=== PATIENT | male | born 1990 | race Caucasian/White ===

== ENCOUNTER 2020-03-26 19:14 | Inpatient (IN) | payer MEDICAID, OTHER, SELFPAY ==
[~2020-03-26] VITALS: Ht 175.3 cm; Wt 179.1 kg
[2020-03-26 21:03] LABS: HEMOGLOBIN 14.1 g/dl (13.5-17.5); MEAN CORPUSCULAR HEMOGLOBIN 27.3 pg (27.0-33.0); MEAN CORPUSCULAR HGB CONC 31.3 g/dl (32.0-36.5); MEAN CORPUSCULAR VOLUME 87.2 fl (80.0-96.0); PLATELET COUNT, AUTOMATED 325 10^3/uL (150-450); RED BLOOD COUNT 5.16 10^6/uL (4.30-6.10); WHITE BLOOD COUNT 12.9 10^3/uL (4.0-10.0)
[2020-03-26 21:33] LABS: AMPHETAMINES LEVEL URINE NEGATIVE (NEGATIVE); BARBITURATES URINE NEGATIVE (NEGATIVE); BENZODIAZEPINES URINE NEGATIVE (NEGATIVE); CANNABINOIDS URINE NEGATIVE (NEGATIVE); COCAINE METABOLITE URINE NEGATIVE (NEGATIVE); METHADONE URINE NEGATIVE (NEGATIVE); OPIATES URINE NEGATIVE (NEGATIVE); PHENCYCLIDINE URINE NEGATIVE (NEGATIVE)
[2020-03-26 21:49] LABS: ACETAMINOPHEN LEVEL < 2.0 UG/ML (10.0-30.0); ALBUMIN 4.7 GM/DL (3.2-5.2); ALT/SGPT 86 U/L (12-78); BILIRUBIN,DIRECT 0.1 MG/DL (0.0-0.2); BILIRUBIN,TOTAL 0.4 MG/DL (0.2-1.0); BLOOD UREA NITROGEN 15 MG/DL (7-18); CARBON DIOXIDE LEVEL 23 MEQ/L (21-32); CHLORIDE LEVEL 107 MEQ/L (98-107); CREATININE FOR GFR 1.22 MG/DL (0.70-1.30); ETHYL ALCOHOL (ETHANOL) < 0.003 % (0.000-0.010); GLOMERULAR FILTRATION RATE > 60.0 (>60); GLUCOSE, FASTING 114 MG/DL (70-100); POTASSIUM SERUM 4.5 MEQ/L (3.5-5.1); SALICYLATE LEVEL < 1.7 MG/DL (5.0-30.0); SODIUM LEVEL 140 MEQ/L (136-145); TOTAL PROTEIN 8.2 GM/DL (6.4-8.2)
[2020-03-26] MEDS ORDERED: LISI20TA33 PO (22:55)
[2020-03-26] MEDS ORDERED: METF-838 PO (22:55)
[2020-03-26] MEDS ORDERED: RIBO400T PO (22:55)
[2020-03-26] MEDS ORDERED: ALEV220T22 PO (22:55)
[2020-03-26] MEDS ORDERED: BUPR150T4 PO (22:55)
[2020-03-26] MEDS ORDERED: RA M10TA PO (22:55)
[2020-03-26] MEDS ORDERED: SYNT175T2 PO (22:55)
[2020-03-26] MEDS ORDERED: LORazepam 2 MG TAB PO ONE (23:30)
[2020-03-27] MEDS ORDERED: LORazepam 2 MG TAB PO ONE ×2 (04:45→21:00)
[2020-03-27] MEDS: LEVOTHYROXINE 100MCG TABLET (0.1MG) PO SCH (09:04)
[2020-03-27] MEDS: NAPROXEN 250 MG TAB PO SCH (09:04)
[2020-03-27] MEDS: LEVOTHYROXINE 75MCG TABLET (0.075MG) PO SCH (09:04)
[2020-03-27] MEDS: buPROPion **XL** TABLET 150MG (WELLBUTRIN XL) PO SCH (09:06)
[2020-03-27] MEDS ORDERED: LORazepam 1 MG TAB PO ONE (11:15)
[2020-03-27 12:02] LABS: RSV AMPLIFICATION NEGATIVE (NEGATIVE)
--- NOTE | 2020-03-27 20:34 | ECGEPIP ---
[facility] - ED Test Date: 2020-03-26 Pat Name: SHAVONNE TREVINO Department: Room: - Gender: Male Well Blower: landon : 1990 Requested By: JA Begum Order Number: [id number] Reading MD: Orlando Castanon Measurements Intervals [place] Rate: 101 P: 56 LA: 132 QRS: 58 QRSD: 94 T: 39 QT: 322 QTc: 418 Interpretive Statements SINUS TACHYCARDIA NO PRIORS FOR COMPARISON Electronically Signed on 03-27-2020 20:34:32 EST by Orlando Castanon
[2020-03-27] MEDS: metFORMIN XR 500MG TAB *GLUCOPHAGE XR PO SCH (21:00)
[2020-03-28] MEDS: LEVOTHYROXINE 100MCG TABLET (0.1MG) PO SCH (06:00)
[2020-03-28] MEDS: LEVOTHYROXINE 75MCG TABLET (0.075MG) PO SCH (06:00)
[2020-03-28] MEDS ORDERED: buPROPion **XL** TABLET 150MG (WELLBUTRIN XL) PO SCH (09:00)
[2020-03-28] MEDS: NAPROXEN 250 MG TAB PO SCH (09:24)
[2020-03-28] MEDS: buPROPion **XL** TABLET 150MG (WELLBUTRIN XL) PO SCH (09:25)
[2020-03-28] MEDS ORDERED: ACETAMINOPHEN TAB 650MG DOSE (2X325MG) PO PRN (12:30)
[2020-03-28] MEDS ORDERED: MAALOX 30 ML SUSP *UDC PO PRN (12:30)
[2020-03-28] MEDS ORDERED: MOM 30ML SUSPENSION UDC PO PRN (12:30)
[2020-03-28] MEDS ORDERED: OLANZapine ORAL DISINTEGRATING TAB 5MG PO PRN (12:30)
--- OUTSIDE RECORDS SUMMARY | 2020-03-28 12:50 | CCD ---
Author Author [facility] Organization [facility] Address Unknown Phone Unavailable Care Team Providers Care [employer] Name Role Phone Luis Rossi DO Unavailable Unavailable Enid R Yash DO Unavailable Unavailable Leuwagnerer R Yash DO Unavailable Unavailable Leuawgnerer R Yash DO Unavailable Unavailable Leuwagnerer, R Yash DO Unavailable Unavailable Leuwagnerer, R Yash DO Unavailable Unavailable Leuwagnerer, R Yash DO Unavailable Unavailable Leuwagnerer R Yash DO Unavailable Unavailable Leuwagnerer, R Yash DO Unavailable Unavailable Leuwagnerer, R Yash DO Unavailable Unavailable Leuenberger, R Yash DO Unavailable Unavailable Leuenberger, R Yash DO Unavailable Unavailable Leuenberger, R Yash DO Unavailable Unavailable Leuenberger, R Yash DO Unavailable Unavailable Leuenberger, R Yash DO Unavailable Unavailable Leuenberger, R Yash DO Unavailable Unavailable Leuenberger, R Yash DO Unavailable Unavailable Leuenberger, R Yash DO Unavailable Unavailable Leuenberger, R Yash DO Unavailable Unavailable Leuenberger, R Yash DO Unavailable Unavailable Leuenberger, R Yash DO Unavailable Unavailable Leuenberger, R Yash DO Unavailable Unavailable Leuenberger, R Yash DO Unavailable Unavailable Leuenberger, R Yash DO Unavailable Unavailable Leuenberger, R Yash DO Unavailable Unavailable Leuenberger, R Yash DO Unavailable Unavailable Leuenberger, R Yash DO Unavailable Unavailable Leuenberger, R Yash DO Unavailable Unavailable Leuenberger, R Yash DO Unavailable Unavailable Leuenberger, R Yash DO Unavailable Unavailable Leuenberger, R Yash DO Unavailable Unavailable Leuenberger, R Yash DO Unavailable Unavailable Leuenberger, R Yash DO Unavailable Unavailable Leuenberger, R Yash DO Unavailable Unavailable Leuenberger, R Yash DO Unavailable Unavailable Leuenberger, R Yash DO Unavailable Unavailable Leuenberger, R Yash DO Unavailable Unavailable Leuenberger, R Yash DO Unavailable Unavailable Leuenberger, R Yash DO Unavailable Unavailable Leuenberger, R Yash DO Unavailable Unavailable Leuenberger, R Yash DO Unavailable Unavailable Leuenberger, R Yash DO Unavailable Unavailable Leuenberger, R Yash DO Unavailable Unavailable Leuenberger, R Yash DO Unavailable Unavailable Leuenberger, R Yash DO Unavailable Unavailable Leuenberger, R Yash DO Unavailable Unavailable Leuenberger, R Yash DO Unavailable Unavailable Leuenberger, R Yash DO Unavailable Unavailable Leuenberger, R Yash DO Unavailable Unavailable Leuenberger, R Yash DO Unavailable Unavailable Leuenberger, R Yash DO Unavailable Unavailable Leuenberger, R Yash DO Unavailable Unavailable Leuenberger, R Yash DO Unavailable Unavailable Leuenberger, R Yash DO Unavailable Unavailable Leuenberger, R Yash DO Unavailable Unavailable Leuenberger, R Yash DO Unavailable Unavailable Leuenberger, R Yash DO Unavailable Unavailable Leuenberger, R Yash DO Unavailable Unavailable Leuenberger, R Yash DO Unavailable Unavailable Leuenberger, R Yash DO Unavailable Unavailable Leuenberger, R Yash DO Unavailable Unavailable Leuenberger, R Yash DO Unavailable Unavailable Leuenberger, R Yash DO Unavailable Unavailable Leuenberger, R Yash DO Unavailable Unavailable Leuenberger, R Yash DO Unavailable Unavailable Leuenberger, R Yash DO Unavailable Unavailable Luis Rossi DO Unavailable Unavailable Shavonne Tellez MD Unavailable Unavailable Palmowski, T Davina PA Unavailable Unavailable Palmowski, T Davina PA Unavailable Unavailable Palmowski, T Davina PA Unavailable Unavailable Palmowski, T Davina PA Unavailable Unavailable Palmowski, T Davina PA Unavailable Unavailable Palmowski, T Davina PA Unavailable Unavailable Palmowski, T Davina PA Unavailable Unavailable Palmowski, T Davina PA Unavailable Unavailable Palmowski, T Davina PA Unavailable Unavailable Palmowski, T Davina PA Unavailable Unavailable Palmowski, T Davina PA Unavailable Unavailable Palmowski, T Davina PA Unavailable Unavailable Palmowski, T Davina PA Unavailable Unavailable Palmowski, T Davina PA Unavailable Unavailable Palmowski, T Davina PA Unavailable Unavailable Palmowski, T Davina PA Unavailable Unavailable Palmowski, T Davina PA Unavailable Unavailable Palmowski, T Davina PA Unavailable Unavailable Palmowski, T Davina PA Unavailable Unavailable Palmowski, T Davina PA Unavailable Unavailable Palmowski, T Davina PA Unavailable Unavailable Palmowski, T Davina PA Unavailable Unavailable Palmowski, T Davina PA Unavailable Unavailable Palmowski, T Davina PA Unavailable Unavailable [facility], [facility] Unavailable Unavailable SYSTEM IN, NOT IN PROVIDER Unavailable Unavailable Re-disclosure Warning The records that you are about to access may contain information from federally-assisted alcohol or drug abuse programs. If such information is present, then the following federally mandated warning applies: This information has been disclosed to you from records protected by federal confidentiality rules (42 CFR part 2). The federal rules prohibit you from making any further disclosure of this information unless further disclosure is expressly permitted by the written consent of the person to whom it pertains or as otherwise permitted by 42 CFR part 2. A general authorization for the release of medical or other information is NOT sufficient for this purpose. The Federal rules restrict any use of the information to criminally investigate or prosecute any alcohol or drug abuse patient.The records that you are about to access may contain highly sensitive health information, the redisclosure of which is protected by Article 27-F of the [facility] Public Health law. If you continue you may have access to information: Regarding HIV / AIDS; Provided by facilities licensed or operated by the [facility] Office of Mental Health; or Provided by the [facility] Office for People With Developmental Disabilities. If such information is present, then the following [facility] mandated warning applies: This information has been disclosed to you from confidential records which are protected by state law. State law prohibits you from making any further disclosure of this information without the specific written consent of the person to whom it pertains, or as otherwise permitted by law. Any unauthorized further disclosure in violation of state law may result in a fine or usp sentence or both. A general authorization for the release of medical or other information is NOT sufficient authorization for further disc losure. Encounters Encounter Providers Location Date Indications Data Source(s ) Outpatient Referrer: PROVIDER SYSTEM IN 03/27/2020 1 0:40:00 AM EST SI, depression [facility] SI, depression Outpatient Attender: Yash Connell: Yash goff DO 10/17/2019 12:52:00 PM EDT - 10/17/2019 01:51:00 PM EDT [facility] Outpatient Attender: Yash Rossi DO 10/16/2019 06:24:00 PM EDT I10,E78.,E11.9,E03.9,R79.89,E78.00,A09 [facility] I10,E78.,E11.9,E03.9,R79.89,E78.00,A09 Outpatient Attender: Davina Barretter: Yash Quiroga DO 08/24/2019 08:47:00 AM [facility]: Yash Connell: Yash goff DO 05/16/2019 03:22:00 PM EDT - 05/16/2019 04:01:00 PM EDT [facility] Outpatient Attender: Yash Rossi DO 05/15/2019 04:01: 00 PM EDT E11.9,I10 [facility] E11.9,I10 Outpatient Attender: JOE ALFREDAL 05/09/2019 09:01:08 PM ES T [facility] Emergency Attender: Shavonne Tellez MD 03:30:00 PM EST - 03/06/2019 04:21:00 PM EST [facility] F[facility] Patient discharged. Outpatient Attender: Yash Theodoreer: Yash salmeronerger 02/24/2019 04:10:00 PM EST - 02/24/2019 04:31:00 PM EST [facility] Immunizations Vaccine Date Status Description Data Source(s) Tdap 03/06/2019 12:00:00 AM EST completed tetan us, diphtheria, acell pertussis 7yrs &up [facility] Tdap 03/06/2019 12:00:00 AM EST completed tetan us, diphtheria, acell pertussis 7yrs &up [facility] Tdap 03/06/2019 12:00:00 AM EST completed tetan us, diphtheria, acell pertussis 7yrs &up [facility] Tdap 03/06/2019 12:00:00 AM EST completed tetan us, diphtheria, acell pertussis 7yrs &up [facility] Medications Medication Brand Name Start Date Product Form Dose Route Admi nistrative Instructions Pharmacy Instructions Status Indications Reaction Description Data Source(s) 175 mcg 11/03/2019 12:00:00 AM EDT tablet 90 TAKE ONE TABLET BY MOUTH EVERY DAY TAKE ONE TABLET BY MOUTH EVERY DAY SOLD: 11/03/2019 [facility] 175 mcg 11/03/2019 12:00:00 AM EDT tablet 90 TAKE ONE TABLET BY MOUTH EVERY DAY TAKE ONE TABLET BY MOUTH EVERY DAY SOLD: 01/28/2020 [facility] 500 mg 10/18/2019 12:00:00 AM EDT tablet extended release 24 hr 90 TAKE ONE TABLET BY MOUTH EVERY EVENING TAKE ONE TABLET BY MOUTH EVERY EVENING SOLD: 01/02/2020 [facility] 24 HR Bupropion Hydrochloride 150 MG Extended Release Oral T ablet BUPROPION HCL 10/18/2019 12:00:00 AM EDT tablet extended release 24 hr 90 TAKE ONE TABLET BY MOUTH EVERY MORNING TAKE ONE TABLET BY MOUTH EVERY MORNING SOLD: 01/20/2020 [facility] 24 HR Bupropion Hydrochloride 150 MG Extended Release Oral T ablet BUPROPION HCL 10/18/2019 12:00:00 AM EDT tablet extended release 24 hr 90 TAKE ONE TABLET BY MOUTH EVERY MORNING TAKE ONE TABLET BY MOUTH EVERY MORNING SOLD: 10/19/2019 [facility] 500 mg 10/18/2019 12:00:00 AM EDT tablet extended release 24 hr 90 TAKE ONE TABLET BY MOUTH EVERY EVENING TAKE ONE TABLET BY MOUTH EVERY EVENING SOLD: 10/19/2019 [facility] 24 HR Metformin hydrochloride 500 MG Extended Release Oral T ablet Metformin 10/17/2019 01:22:07 PM EDT 500 MG [facility] 24 HR Bupropion Hydrochloride 150 MG Extended Release Oral Tablet Bupropion Hcl Bupropion Hcl 10/17/2019 01:21:39 PM EDT 150 MG [facility] 20 mg 09/12/2019 12:00:00 AM EDT tablet 90 TAKE ONE TABLET BY MOUTH EVERY DAY TAKE ONE TABLET BY MOUTH EVERY DAY SOLD: 12/20/2019 [facility] 20 mg 09/12/2019 12:00:00 AM EDT tablet 90 TAKE ONE TABLET BY MOUTH EVERY DAY TAKE ONE TABLET BY MOUTH EVERY DAY SOLD: 09/13/2019 [facility] 20 mg 09/12/2019 12:00:00 AM EDT tablet 90 TAKE ONE TABLET BY MOUTH EVERY DAY TAKE ONE TABLET BY MOUTH EVERY DAY SOLD: 03/20/2020 [facility] Lisinopril 20 MG Oral Tablet Lisinopril 09/11/2019 04:42:25 PM EDT 20 MG active [facility] Levothyroxine Sodium 0.175 MG Oral Tablet Levothyroxine 09/01/2019 04:07:00 PM EDT 175 MCG [facility] 175 mcg 09/01/2019 12:00:00 AM EDT tablet 60 TAKE ONE TABLET BY MOUTH EVERY DAY. NEED TO GET LABS DONE PLEASE. TAKE ONE TABLET BY MOUTH EVERY DAY. NEED TO GET LABS DONE PLEASE. SOLD: 09/04/2019 [facility] 175 mcg 07/04/2019 12:00:00 AM EDT tablet 60 TAKE ONE TABLET BY MOUTH EVERY DAY TAKE ONE TABLET BY MOUTH EVERY DAY SOLD: 07/05/2019 [facility] 20 mg 07/04/2019 12:00:00 AM EDT tablet 60 TAKE ONE TABLET BY MOUTH EVERY DAY TAKE ONE TABLET BY MOUTH EVERY DAY SOLD: 07/05/2019 [facility] Levothyroxine Sodium 0.175 MG Oral Tablet Levothyroxine 07/03/2019 01:08:08 PM EDT 175 MCG [facility] Levothyroxine Sodium 0.175 MG Oral Tablet Levothyroxine 07/03/2019 01:08:08 PM EDT 175 MCG completed [facility] Lisinopril 20 MG Oral Tablet Lisinopril 07/03/2019 11:50:47 AM EDT 20 MG completed [facility] Lisinopril 20 MG Oral Tablet Lisinopril 07/03/2019 11:50:47 AM EDT 20 MG active [facility] Levothyroxine Sodium 0.175 MG Oral Tablet Levothyroxine 06/30/2019 02:17:20 PM EDT 175 MCG completed [facility] Levothyroxine Sodium 0.175 MG Oral Tablet Levothyroxine 06/30/2019 02:17:20 PM EDT 175 MCG completed [facility] Pen Needle, Diabetic 05/16/2019 03:57:29 PM EDT 0 active [facility] Pen Needle, Diabetic 05/16/2019 03:57:29 PM EDT 0 completed [facility] Pen Needle, Diabetic (Bd Ultra-Fine Micro Pen Needle) 32 gau ge x 1/4" needle 05/16/2019 03:57:29 PM EDT 0 completed [facility] 3 ML liraglutide 6 MG/ML Pen Injector [S axenda] Liraglutide (Weight Loss) (Saxenda) 3 mg/0.5 mL (18 mg/3 mL) pen injector Liraglutide (Weight Loss) (Saxenda) 3 mg/0.5 mL (18 mg/3 mL) pen injector 05/16/2019 03:55:33 PM EDT 0 completed [facility] 3 ML liraglutide 6 MG/ML Pen Injector [Saxenda] Liragl utide (Weight Loss) Liraglutide (Weight Loss) 05/16/2019 03:55:33 PM EDT 0 completed [facility] 3 ML liraglutide 6 MG/ML Pen Injector [Saxenda] Liragl utide (Weight Loss) Liraglutide (Weight Loss) 05/16/2019 03:55:33 PM EDT 0 active [facility] Phentermine Hydrochloride 30 MG Oral Capsule Phentermine 05/16/2019 03:54:46 PM EDT 30 MG active [facility] Phentermine Hydrochloride 30 MG Oral Capsule Phentermine 05/16/2019 03:54:46 PM EDT 30 MG completed [facility] Phentermine Hydrochloride 30 MG Oral Capsule Phentermine 05/16/2019 03:54:46 PM EDT 30 MG completed [facility] 30 mg 05/16/2019 12:00:00 AM EDT capsule 30 TAKE ONE CAPSULE BY MOUTH EVERY DAY MAXIMUM DAILY DOSE = 1 CAPSULE TAKE ONE CAPSULE BY MOUTH EVERY DAY MAXI MUM DAILY DOSE = 1 CAPSULE SOLD: 07/22/2019 [facility] 30 mg 05/16/2019 12:00:00 AM EDT capsule 30 TAKE ONE CAPSULE BY MOUTH EVERY DAY MAXIMUM DAILY DOSE = 1 CAPSULE TAKE ONE CAPSULE BY MOUTH EVERY DAY MAXI MUM DAILY DOSE = 1 CAPSULE SOLD: 06/17/2019 [facility] 30 mg 05/16/2019 12:00:00 AM EDT capsule 30 TAKE ONE CAPSULE BY MOUTH EVERY DAY MAXIMUM DAILY DOSE = 1 CAPSULE TAKE ONE CAPSULE BY MOUTH EVERY DAY MAXI MUM DAILY DOSE = 1 CAPSULE SOLD: 05/18/2019 [facility] 20 mg 04/06/2019 12:00:00 AM EST tablet 90 TAKE ONE TABLET BY MOUTH EVERY DAY TAKE ONE TABLET BY MOUTH EVERY DAY SOLD: 04/06/2019 [facility] 175 mcg 04/01/2019 12:00:00 AM EST tablet 90 TAKE ONE TABLET BY MOUTH EVERY DAY, PLEASE GET LABS DONE TAKE ONE TABLET BY MOUTH EVERY DAY, [place] [facility] GET LABS DONE SOLD: 04/03/2019 [facility] 30 mg 03/12/2019 12:00:00 AM EST capsule 30 TAKE ONE CAPSULE BY MOUTH EVERY DAY MAXIMUM DAILY DOSE = 1 CAPSULE TAKE ONE CAPSULE BY MOUTH EVERY DAY MAXI MUM DAILY DOSE = 1 CAPSULE SOLD: 03/14/2019 [facility] 30 mg 03/12/2019 12:00:00 AM EST capsule 30 TAKE ONE CAPSULE BY MOUTH EVERY DAY MAXIMUM DAILY DOSE = 1 CAPSULE TAKE ONE CAPSULE BY MOUTH EVERY DAY MAXI MUM DAILY DOSE = 1 CAPSULE SOLD: 04/17/2019 [facility] Phentermine Hydrochloride 30 MG Oral Capsule Phentermine 03/10/2019 05:13:36 PM EST 30 MG completed [facility] Phentermine Hydrochloride 30 MG Oral Capsule Phentermine 03/10/2019 05:13:36 PM EST 30 MG completed [facility] Phentermine Hydrochloride 30 MG Oral Capsule Phentermine 03/10/2019 05:13:36 PM EST 30 MG completed [facility] Phentermine Hydrochloride 15 MG Oral Capsule Phentermine 02/24/2019 04:31:59 PM EST 30 MG completed [facility] Phentermine Hydrochloride 15 MG Oral Capsule Phentermine 02/24/2019 04:31:59 PM EST 30 MG completed [facility] Phentermine Hydrochloride 15 MG Oral Capsule Phentermine 02/24/2019 04:31:59 PM EST 30 MG completed [facility] 30 mg 01/25/2019 12:00:00 AM EST capsule 30 TAKE ONE CAPSULE BY MOUTH EVERY DAY MAXIMUM DAILY DOSE = 1 CAPSULE TAKE ONE CAPSULE BY MOUTH EVERY DAY MAXI MUM DAILY DOSE = 1 CAPSULE SOLD: 02/07/2019 [facility] Lisinopril 20 MG Oral Tablet Lisinopril 12/23/2018 03:47:14 PM EDT 20 MG completed [facility] Lisinopril 20 MG Oral Tablet Lisinopril 12/23/2018 03:47:14 PM EDT 20 MG completed [facility] Levothyroxine Sodium 0.175 MG Oral Tablet Levothyroxine 12/23/2018 03:46:04 PM EDT 175 MCG completed [facility] Levothyroxine Sodium 0.175 MG Oral Tablet Levothyroxine 12/23/2018 03:46:04 PM EDT 175 MCG completed [facility] Phentermine Hydrochloride 15 MG Oral Capsule Phentermine 12/16/2018 04:52:29 PM EDT 15 MG completed [facility] Phentermine Hydrochloride 15 MG Oral Capsule Phentermine 12/16/2018 04:52:29 PM EDT 15 MG completed [facility] Phentermine Hydrochloride 15 MG Oral Capsule Phentermine 12/16/2018 04:52:29 PM EDT 15 MG completed [facility] Insurance Providers Payer name Policy type / Coverage type Policy ID Covered republican ID Covered republican's relationship to reza Policy Reza Plan Information [facility] [id number] SP [id number] [facility] PLAN [facility] [id number] SP [id number] [facility] PLAN [facility] [id number] SP [id number] SELF PAY ONLY [id number] SP [id number] [employer]S [id number] Managed Care - [facility] Community Plan P UNAVAILABLE S UNAVAILABLE Managed Care - [facility] P UNAVAILABLE S UNAVAILABLE [facility] Other 0 Self 0 [facility] Other 0 Self 0 [facility] [place] [facility] [place] Other [id number] Self [id number] [facility] [place] [facility] [place] Other [id number] Self [id number] [facility] [place] [facility] [place] Other [id number] Self [id number] [facility] [place] [facility] [place] Other [id number] Self [id number] [facility] [place] [facility] [place] Other [id number] Self [id number] [facility] [place] [facility] [place] Other [id number] Self [id number] [facility] [place] [facility] [place] Other [id number] Self [id number] [facility] [place] [facility] [place] Other [id number] Self [id number] [facility] [facility] [place] [facility] [place] Other [id number] Self [id number] [facility] [facility] [place] [facility] [place] Other [id number] Self [id number] [employer] [facility] [place] [facility] [place] Other [id number] Self [id number] Problems, Conditions, and Diagnoses Code Display Name Description Problem Type Effective Dates Data Source(s) SI, depression SI, depression Diagnosis 03/27/2020 10:40: 00 AM [facility] Results ID Date Data Source [id number] 10/17/2019 01:02:00 PM EDT [facility] Patient Name: SHAVONNE CHANEY : 1990 Sex: M Pt Unit #: [id number] Location:[facility] Provider: Visit Date/Time: 10/17/19 Primary Insurance: [facility] Secondary Insurance: MEDICAID [facility] 2ND R Intake Vital Signs 10/17/19 13:02 Current Height 5 ft 9 in Current Weight 395 lb Weight Measurement Method Standing Scale BMI 58.3 BP 140/72 Blood Pressure Location Lt brachial Position Sitting Respiration 20 Pulse 78 Pulse Strength Normal Pulse Source Palpation Temp 97.5 F L Temp Source Tympanic Intake Visit Reasons: Diabetes follow-up Nurse Note: Reports having migraines once a week Is patient in pain?: Yes (back pain) Pain scale (1-10): 6 Allergies Penicillins Allergy (Unknown, Verified 11/08/18 11:38) Hives Vision Wearing glasses?: No Fall Risk History of falls: No PHQ-2/9 Over the last 2 weeks, how often have you been bothered by any of the following problems? 1. Little interest or pleasure in doing things: not at all 2. Feeling down, depressed, or hopeless: not at all Total score: 0 HIV Testing Offer - ages 13-64 Requirement for HIV testing offer been met?: Patient reports past refusal SBIRT Annual Questionnaire Are you currently in recovery for alcohol or substance use?: No How many times in the past year have you had 5 or more drinks in a day?: None How many times in the past year have you used a recreational drug or used a prescription medication for nonmedical reasons?: None Coronavirus Screening Screening Have you traveled outside of [facility] or [facility] in the last 14 days.: No Has patient experienced coronavirus symptoms: No [facility] Medical History Attention deficit disorder Chronic low back pain Hypothyroidism Obesity Obstructive sleep apnea Social History Does the Patient have a Healthcare Proxy: No Does Patient have a DNR?: No Does Patient have a Living Will?: No Hx Recent Travel (where): No HPI Diabetes Interval history: Shavonne is a 29-year-old male presenting today to follow-up on multiple issues including depression, hypertension, hypothyroidism, obesity and recent labs showing diabetes. He reports being very depressed because his mother somewhat unexpectedly this past June. She had been in a fairly good state of health and then got really sick and was brought to the hospital where she was transferred to [facility]. He thinks he might of had a stroke. She was then cysts discharged from the hospital and went [facility] a pen[facility] where she got sicker and . Hehas been very depressed. He also has been isolated because of the coronavirus and he is put on 30 pounds in the past few months. He admit s that he does not try to exercise and eats whatever he wants. He has been compliant with his thyroid medication as well as his blood pressure medication. He does have a family history of diabetes. He has a sleep apnea machine and he uses it every night. He is not sure how much it helps because he still feels tired and has absolutely no ambitious all day long. Cardiopulmonary symptoms: Reports dyspnea and dyspnea on exertion; Denies lightheadedness Other symptoms: Denies blurry vision or change in vision Review of Systems Const All systems reviewed are unremarkable except as noted in HPI and below Reports difficulty sleeping, Reports fatigue and Reports headache(s) Eyes Denies blurry vision, Denies change in vision, Denies dry eyes, Denies irritation, Denies itchy eyesand Denies loss of vision ENT Reports headache(s), Denies lip swelling and Denies throat swelling Card Denies chest pain, Denies pedal edema, Denies lightheadedness, Denies palpitations, Reports dyspnea and Reports dyspnea on exertion Resp Reports dyspnea and Reports dyspnea on exertion Denies difficulty urinating, Denies flank pain, Denies urinary frequency, Denies urinary incontinence and Denies urinary urgency Musc Reports back pain Skin/Breast Denies breast pain, Denies change in pigmentation, Denies lesions, Denies nail changes, Denies rash and Denies unusual bruising Neuro Reports headache(s) and Denies loss of vision Psych Reports abnormal sleep pattern, Reports anxiety and Reports irritability Endo Reports fatigue and Denies palpitations Aller/Immun Denies urticaria, Denies itchy eyes, Denies lip swelling, Denies seasonal rhinorrhea and Denies throat swelling Exam Const General: cooperative, comfortable and no acute distress Nutritional Appearance: obese morbidly obese [facility] Head: normal to inspection Mouth: moist mucous membranes Eyes Conjunctivae: conjunctivae normal Sclera: sclerae normal Pupils: PERRL EOM: EOM intact bilaterally Resp Effort Inspection: normal respiratory effort Auscultation: clear to auscultation bilaterally Cardio Rate: regular rate Rhythm: regular rhythm Heart Sounds: S1 normal and S2 normal GI Inspection: Yes normal to inspection Palpation: soft, no hepatosplenomegaly and nontender Auscultation: normal bowel sounds Extrem General: full ROM, capillary refill normal and no clubbing, cyanosis or edema Assessment Plan Assessment Plan (1) Diabetes mellitus: Status: Acute Code(s): E11.9 - Type 2 diabetes mellitus without complications SNOMED Code(s): 68751386 Category: Medical C ode(s): E11.9 - Type 2 diabetes mellitus without complications (2) Hypothyroidism (acquired): Status: Acute Code(s): E03.9 - Hypothyroidism, unspecified SNOMED Code(s): 952289841 Category: Medical (3) Obstructive sleep apnea (adult) (pediatric): Status: Acute Onset Date: 11/30/17 Code(s): G47.33 - Obstructive sleep apnea (adult) (pediatric) SNOMED Code(s): 55421583 Category: Medical (4) Obesity: Status: Acute Code(s): E66.9 - Obesity, unspecified SNOMED Code(s): 669724305 Category: Medical (5) Hypertension: Status: Chronic Code(s): I10 - Essential (primary) hypertension SNOMED Code(s): 95563568 Category: Medical (6) Diabetes mellitus: Status: Acute Code(s): E11.9 - Type 2 diabetes mellitus without complications SNOMED Code(s): 23548630 Category: Medical (7) Migraine headache without aura: Status: Acute Code(s): G43.009 - Migraine without aura, not intractable, without status migrainosus SNOMED Code(s): 30805374 Category: Medical Plan - Yash Rossi, DO: Management of multiple conditions today is mostly chronic and diabetes is new. We will continue the same dose of thyroid medication, will continue with same dose of lisinopril forhypertension Discussed treatment for diabetes as well as lifestyle modifications and will start metformin 500 mg taking 1 a day at night with dinner. After a week or 2 will add a second 1 so he takes thousand milligrams at a time. As for depression this is possibly why he is starting to gain so much more weight. He is almost 400pounds and we could also explain why he has no ambition. Will start on bupropion as this may also be able to help with weight loss. I like to have him back in a month or so to recheck his depression. We will need to recheck A1c in 3 months. I will consider starting topiramate for helping prevent migraines and is also may help with weight loss. He was told to start magnesium and riboflavin for migraine prevention. As for his cholesterol panel and triglycerides we will recheck this as well in 3 months. Already starting 2 new medications today I will discuss starting a statin with him in the future. Orders: Orders: HGBA1C + EAG 3 Months E11.9, E11.9 FREE T4 (LAB) 3 Months E03.9 TSH 3 Months E03.9 Medications: New: bupropion HCl 150 mg PO QAM 90 tabs 3RF metformin ER 500 mg PO QPM 90 tabs 3RF Orders Other Medications: New: bupropion HCl 150 mg PO QAM 90 tabs 3RF metformin ER 500 mg PO QPM 90 tabs 3RF Other Orders: Orders: CMP 3 Months E78.00 LIPID PANEL 3 Months E78.00 Electronically Signed By: <Electronically signed by Yash Rossi DO> Date/Time Signed: 10/17/19 1714 Name Value Range Interpretation Code Description Data Bindu rce(s) Supporting Document(s) ID Date Data Source [id number] 10/16/2019 06:59:00 PM EDT [facility] @10/16/191957: Direct LDL added. RFLXG = LDLC. @10/16/191957: Direct LDL added. RFLXG = LDLC. @10/16/191957: Direct LDL added. RFLXG = LDLC. @10/16/191957: Direct LDL added. RFLXG = LDLC. @10/16/191957: Direct LDL added. RFLXG = LDLC. Name Value Range Interpretation Code Description Data Bindu rce(s) Supporting Document(s) Leukocytes [#/volume] in Blood by Automated count 10.2 10*3/uL 4.45-1 0.71 [facility] Erythrocytes [#/volume] in Blood by Automated count 4.93 10*6/uL 4.3- 6.1 [facility] Hemoglobin [Moles/volume] in Blood 13.6 g/dL 13-18 [facility] Hematocrit [Volume Fraction] of Blood by Automated count 41.7 % 42-52 Below low normal [facility] Erythrocyte mean corpuscular volume [Ent itic volume] in Cord blood by Automated count 84.6 fL 80-96 [facility] Erythrocyte mean corpuscular hemoglobin [Entitic mass] by Automated count 27.6 pg 27-31 [facility] Erythrocyte mean corpuscular hemoglobin concentration [Mass/volume] in Cord blood 32.6 g/dL 33-[address] [facility] Erythrocyte distribution width [Entitic volume] by Automated count 15 % 11-15 [facility] Platelets [#/volume] in Blood by Automated count 273 10*3/uL 130-472 N [facility] Platelet mean volume [Entitic volume] in Blood 9.1 fL 9.1-13.1 N [facility] Neutrophils/100 leukocytes in Blood by Automated count 68.5 % 41- 77 N [facility] Neutrophils [#/volume] in Blood by Automated count 7.0 U 1.7-7.6 N [facility] Lymphocytes/100 leukocytes in Blood by Automated count 21.2 % 14- 46 N [facility] Lymphocytes [#/volume] in Blood by Automated count 2.2 U 0.6-4.6 N [facility] Monocytes/100 leukocytes in Blood by Automated count 6.0 % 4-12 N [facility] Monocytes [#/volume] in Blood by Automated count 0.6 U 0.2-1.2 N [facility] Eosinophils/100 leukocytes in Blood by Automated count 2.8 % 0-7 [facility] Eosinophils [#/volume] in Blood by Automated count 0.3 U 0.0-0.5 N [facility] Basophils/100 leukocytes in Blood by Automated count 0.6 % 0.4-1 .3 N [facility] Basophils [#/volume] in Blood by Automated count 0.1 U 0.0-0.2 N [facility] NUCLEATED RED BLOOD CELL 0 % [facility] NUCLEATED RED BLOOD CELL# 0 U [facility] Immature granulocytes [Presence] in Blood by Automated count 0-2 N [facility] Immature granulocytes [#/volume] in Blood by Automated count 0.1 U 0-0.1 N [facility] Manual Differential panel - Blood NO [facility] ID Date Data Source [id number] 10/16/2019 07:29:00 PM EDT [facility] @10/16/191957: Direct LDL added. RFLXG = LDLC. @10/16/191957: Direct LDL added. RFLXG = LDLC. @10/16/191957: Direct LDL added. RFLXG = LDLC. @10/16/191957: Direct LDL added. RFLXG = LDLC. @10/16/191957: Direct LDL added. RFLXG = LDLC. Name Value Range Interpretation Code Description Data Bindu rce(s) Supporting Document(s) Hemoglobin A1c % 6.6 % 4.0-6.0 Above high normal [facility] The following ranges may be u sed for interpretation of results: HGBA1C degree of glucose control: Greater than 8%: Action Suggested * Less than 7%: Goal of Diabetic Therapy Less than 6%: NormalFactors such as duration of diabetes, adherence to therapyand the age of the patient should also be considered inassessing the degree of blood glucose control.* High risk of developing [facility] complications such asretinopathy, nephropathy, neuropathy, cardiopathy, etc. Some danger of hypoglycemic reaction in Type I diabetics.Some glucose intolerant individuals and "Sub Clinical"diabetics may demonstrate HGBA1C levels in this area. Glucose mean value [Moles/volume] in Blood Estimated f rom glycated hemoglobin 143 mg/dL [facility] An A1C of 7% - the goal of diabetic ther apy - is equivalentto an EAG of 154 mg/dl. ID Date Data Source [id number] 10/16/2019 07:59:00 PM EDT [facility] @10/16/191957: Direct LDL added. RFLXG = LDLC. @10/16/191957: Direct LDL added. RFLXG = LDLC. @10/16/191957: Direct LDL added. RFLXG = LDLC. @10/16/191957: Direct LDL added. RFLXG = LDLC. @10/16/191957: Direct LDL added. RFLXG = LDLC. Name Value Range Interpretation Code Description Data Bindu rce(s) Supporting Document(s) Urea nitrogen [Mass/volume] in Serum or Plasma 12 mg/dL 9-23 N [facility] Sodium [Moles/volume] in Serum or Plasma 140 mmol/L 132-146 N [facility] Potassium [Moles/volume] in Serum or Plasma 4.2 mmol/L 3.5-5.5 [facility] Chloride [Moles/volume] in Serum or Plasma 109 mmol/L 99-109 N [facility] Carbon dioxide, total [Moles/volume] in Serum or Plasma 24 mmol/L 20 -31 N [facility] Anion gap in Serum or Plasma 11 mmol/L 8-16 N [facility] Glucose [Mass/volume] in Serum or Plasma 161 mg/dL 74-106 Above high normal [facility] Creatinine 1.1 mg/dL 0.5-1.1 [facility] Glomerular filtration rate/1.73 sq M.pre dicted [Volume Rate/Area] in Serum or Plasma Greater Than 60 ABOVE 60 [facility] Alanine aminotransferase [Enzymatic acti vity/volume] in Serum or Plasma by With P-5'-P 61 U/L 10-[address] [facility] Aspartate aminotransferase [Enzymatic ac tivity/volume] in Serum or Plasma by With P-5'-P 28 U/L 0-33 N [facility] pital Alkaline phosphatase [Enzymatic activity/volume] in Serum or Plasma 75 U/L 45-129 N [facility] Calcium [Mass/volume] in Serum or Plasma 8.9 mg/dL 8.5-10.1 [facility] Bilirubin.total [Mass/volume] in Serum or Plasma 0.2 mg/dL 0.3-1.2 Below low normal [facility] Albumin [Mass/volume] in Serum or Plasma by Bromocresol purple (BCP) dye binding method 3.8 g/dL 3.2-4.8 [facility] ital Protein [Mass/volume] in Serum or Plasma 7.2 g/dL 5.7-8.2 [facility] ID Date Data Source [id number] 10/21/2019 01:48:00 PM EDT [facility] @10/16/191957: Direct LDL added. RFLXG = LDLC. @10/16/191957: Direct LDL added. RFLXG = LDLC. @10/16/191957: Direct LDL added. RFLXG = LDLC. @10/16/191957: Direct LDL added. RFLXG = LDLC. @10/16/191957: Direct LDL added. RFLXG = LDLC. Name Value Range Interpretation Code Description Data Bindu rce(s) Supporting Document(s) Testosterone 198 ng/dL 250-1100 [facility] For additional information, please refer [email or web address](This link is being provided for informational/educational purposes only.)This test w as developed and its analytical performancecharacteristics have been determined by [employer] [place], [place]. It hasnot been cleared or approved by the U.S. Food and DrugAdministration. This assay has been validated pursuantto the CLIA regulations and is used for clinicalpurposes. Free Testosterone (Direct) 31.7 pg/mL 35.0-155.0 [facility] This test was developed and its analytic al performancecharacteristics have been determined by [employer] [place], [place]. It hasnot been cleared or approved by the U.S. Food and DrugAdministration. This assay has been validated pursuantto the CLIA regulations and is used for clinicalpurposes.THIS TEST WAS PERFORMED AT:[employer] [id number] [place] [id number] DOUGLAS MD,PHD ID Date Data Source [id number] 10/16/2019 07:59:00 PM EDT [facility] @10/16/191957: Direct LDL added. RFLXG = LDLC. @10/16/191957: Direct LDL added. RFLXG = LDLC. @10/16/191957: Direct LDL added. RFLXG = LDLC. @10/16/191957: Direct LDL added. RFLXG = LDLC. @10/16/191957: Direct LDL added. RFLXG = LDLC. Name Value Range Interpretation Code Description Data Bindu rce(s) Supporting Document(s) Triglycerides 411 mg/dL 0-[address] [facility] @Review & document.@A REPEAT WAS NOT IND ICATED DUE TO RELATED TESTS.The calculated LDL may not be valid whenTriglycerides are greater than 400 mg/dL.A Direct LDL is recommended. Cholesterol 211 mg/dL 120-200 Above high normal [facility] HDL Cholesterol 24 mg/dL [facility] HDL Less than 40 mg/dL: Major risk for CHDHDL Greater than 59 mg/dL: Low risk for CHD LDL Cholesterol, Calc 105 mg/dL 0-100 Above high normal [facility] ID Date Data Source [id number] 10/16/2019 07:59:00 PM EDT [facility] @10/16/191957: Direct LDL added. RFLXG = LDLC. @10/16/191957: Direct LDL added. RFLXG = LDLC. @10/16/191957: Direct LDL added. RFLXG = LDLC. @10/16/191957: Direct LDL added. RFLXG = LDLC. @10/16/191957: Direct LDL added. RFLXG = LDLC. Name Value Range Interpretation Code Description Data Bindu rce(s) Supporting Document(s) LDL Cholesterol, Direct 151 mg/dL 0-100 Above high normal [facility] BORDERLINE ID Date Data Source [id number] 10/16/2019 07:59:00 PM EDT [facility] @10/16/191957: Direct LDL added. RFLXG = LDLC. @10/16/191957: Direct LDL added. RFLXG = LDLC. @10/16/191957: Direct LDL added. RFLXG = LDLC. @10/16/191957: Direct LDL added. RFLXG = LDLC. @10/16/191957: Direct LDL added. RFLXG = LDLC. Name Value Range Interpretation Code Description Data Bindu rce(s) Supporting Document(s) Thyroxine (T4) free [Mass/volume] in Serum or Plasma 1.09 ng/dL 0.89- 1.76 N [facility] ID Date Data Source [id number] 10/16/2019 07:59:00 PM EDT [facility] @10/16/191957: Direct LDL added. RFLXG = LDLC. @10/16/191957: Direct LDL added. RFLXG = LDLC. @10/16/191957: Direct LDL added. RFLXG = LDLC. @10/16/191957: Direct LDL added. RFLXG = LDLC. @10/16/191957: Direct LDL added. RFLXG = LDLC. Name Value Range Interpretation Code Description Data Bindu rce(s) Supporting Document(s) Thyrotropin [Units/volume] in Serum or Plasma by Detec tion limit <= 0.005 mIU/L 2.83 u[iU]/mL 0.35-5.50 [facility] ID Date Data Source [id number] 08/24/2019 08:29:00 AM EDT [facility] Patient Name: SHAVONNE CHANEY : 1990 Sex: M Pt Unit #: [id number] Location:[facility] Provider: Visit Date/Time: 08/24/19 Primary Insurance: [facility] Secondary Insurance: Self Pay Intake Vital Signs 08/24/19 08:29 Current Height 5 ft 9 in Current Weight 387 lb Weight Measurement Method Standing Scale BMI 57.1 BP 144/90 Blood Pressure Location Lt brachial Position Sitting Respiration 18 Pulse 100 Pulse Strength Normal Pulse Source Palpation Temp 97.7 F Temp Source Tympanic Pulse Oximetry (%) 97 Oxygen Delivery Method room air Intake Visit Reasons: Diarrhea Nurse Note: Pt states that he started with liquid stools on Wednesday and missed work. He took pepto bismol and started to get more formed sto ols yesterday. He is eating and drinking. He did have some bloating and cramping which has resolved. Installation Tech Required: No Is patient in pain?: No Allergies Penicillins Allergy (Unknown, Verified 11/08/18 11:38) Hives Fall Risk History of falls: No Ambulatory Aid:: None Gait/Transferring:: Normal Medications:: No High Risk Medications HIV Testing Offer - ages 13-64 HIV testing Offer: No Requirement for HIV testing offer been met?: Patient reports past refusal SBIRT Annual Questionnaire Are you currently in recovery for alcohol or substance use?: No Coronavirus Screening Screening Have you traveled outside of [facility] or [facility] in the last 14 days.: No Has patient experienced coronavirus symptoms: No [facility] Social History (Updated 08/24/19 @ 08:35 by Monica Rucker) Does the Patient have a Healthcare Proxy: No Does Patient have a DNR?: No Does Patient have a Living Will?: No Hx Recent Travel (where): No Smoking Status: Never smoker HPI Additional HPI HPI Details: 28 year old male presents to the clinic today for a chief complaint of diarrhea starting 2 days ago Wednesday08/22/2019. He reports that on that day he had several episodes of brown liquid diarrhea. He had less frequent episodes yesterday with more formed stools, and states he only had 1 BM this morning and it was soft and semi formed. He is feeling better. He denies any abdominal pain,cramping, or vomiting. He denies any bloody or mucus stools. He had chicken at home on Wednesday night,he cooked it on the grill to 180F. He denies any raw milk or meat or fish exposures. He has no additional concerns today. He needs a note to return to work on 08/28/2019. Diarrhea History of Present Illness Associated symptoms: Denies abdominal pain, fecal incontinence, fever(s), lightheadedness, nausea, palpitations, vomiting or weight loss Review of Systems Const Denies fever(s), Denies malaise, Denies weakness and Denies weight loss Card Denies chest pain, Denies pedal edema, Denies lightheadedness, Denies palpitations and Denies dyspnea Resp Denies dyspnea GI Denies abdominal pain, Denies melena, Denies hematochezia, Denies fecal incontinence, Reports diarrhea, Reports loose stools, Denies nausea and Denies vomiting Denies oliguria and Denies urinary frequency Skin/Breast Denies breast pain, Denies change in pigmentation, Denies lesions, Denies nail changes, Denies rash and Denies unusual bruising Neuro Denies weakness Endo Denies palpitations Exam Const General: cooperative, comfortable and no acute distress Nutritional Appearance: obese morbidly obese [facility] Head: normal to inspection Mouth: moist mucous membranes Eyes Conjunctivae: conjunctivae normal Sclera: sclerae normal Pupils: PERRL EOM: EOM intact bilaterally Resp Effort Inspection: normal respiratory effort Auscultation: clear to auscultation bilaterally Cardio Rate: regular rate Rhythm: regular rhythm Heart Sounds: S1 normal and S2 normal GI Inspection: Yes normal to inspection Palpation: soft, no hepatosplenomegaly and nontender Auscultation: normal bowel sounds Extrem General: full ROM, capillary refill normal and no clubbing, cyanosis or edema Assessment Plan Assessment Plan (1) Diarrhea: Code(s): R19.7 - Diarrhea, unspecified Qualifiers: Diarrhea type: presumed infectious Qualified Code(s): R19.7 - Diarrhea, unspecified Plan - MARYBETH Covarrubias: 28 year old male seen today for a chief complaint of diarrhea starting 2 days ago. He was counseled on BRAT diet and oral rehydration. His symptoms are starting to resolve. He may return to work on 08/27 unless he still has symptoms. If he still has symptoms at that point, he was instructed to do astool sample for culture. Follow up PRN. Electronically Signed By: <Electronically signed by Davina RUEDA> Date/Time Signed: 08/24/19 0851 Name Value Range Interpretation Code Description Data Bindu rce(s) Supporting Document(s) ID Date Data Source [id number] 05/16/2019 03:32:00 PM EDT [facility] Patient Name: SHAVONNE CHANEY : 1990 Sex: M Pt Unit #: [id number] Location:[facility] Provider: Visit Date/Time: 05/16/19 Primary Insurance: [facility] Secondary Insurance: Self Pay Intake Vital Signs 05/16/19 15:32 Current Height 5 ft 9 in Current Weight 365 lb Weight Measurement Method Stated by Patient BMI 53.8 BP 126/82 Blood Pressure Location Lt brachial Position Sitting Respiration 18 Pulse 72 Pulse Strength Normal Pulse Source Palpation Intake Visit Reasons: Hypertension Nurse Note: F/U BP and weight loss. Pt states that left great toenail has been blackened x 3 months. Doesn't recall stubbing it or hitting it. Installation Tech Required: No Accompanied by: Self / Same as Patient Is patient in pain?: No Allergies Penicillins Allergy (Unknown, Verified 11/08/18 11:38) Hives Med ications levothyroxine 175 mcg PO DAILY liraglutide (weight loss) (Saxenda) inject subcutaneously once daily: week 1 = 0.6 mg; week 2 = 1.2 mg; week 3 = 1.8 mg; week 4 = 2.4 mg; then 3 mg daily subcut lisinopril 20 mg PO QDAY naproxen sodium (Aleve) 440 mg PO DAILY pen needle, diabetic (BD Ultra-Fine Micro Pen Needle) As directed phentermine 30 mg PO QDAY MDD 1 Fall Risk History of falls: No Ambulatory Aid:: None Gait/Transferring:: Normal HIV Testing Offer - ages 13-64 HIV testing Offer: Yes Requirement for HIV testing offer been met?: Patient reports past refusal SBIRT Annual Questionnaire Are you currently in recovery for alcohol or substance use?: No PFSH Medical History Attention deficit disorder Chronic low back pain Hypothyroidism Obesity Obstructive sleep apnea Social History Does the Patient have a Healthcare Proxy: No Does Patient have a DNR?: No Does Patient have a Living Will?: No Hx Recent Travel (where): No HPI Hypertension (Cardio) Shavonne is a 28-year-old male presenting today to follow-up on hypertension obesity and sleep apnea along with hypothyroidism. We reviewed labs today his thyroid labs have normalized with his TSH at 1.15 and free T4 1.27. His blood pressure is fairly well controlled right now with lisinopril 20 mg. He denies any chest pain and no significant shortness of breath no palpitations. No cough. As for his weight he is extremely frustrated that he is unable to lose weight. He finds up the phentermine has helped decrease his overall appetite and he does not feel hungry. He has cut back on his calories but he is really discouraged that he has not lost any weight. He admits that he does not do any real physical exercise he is always feeling tired. States compliance with his sleepapnea machine and does feel that it has been helpful. Most Recent Cardiac Tests: No Data to Display Review of Systems Const All systems reviewed are unremarkable except as noted in HPI and below Exam Const General: comfortable and no acute distress Nutritional Appearance: obese [facility] Head: normocephalic Eyes General: appearance normal, both eyes and all related structures Neck Neck: normal visual inspection, supple and no JVD present Resp Effort Inspection: normal respiratory effort and able to speak in complete sentences Auscultation: clear to auscultation bilaterally Cardio Rate: regular rate Rhythm: regular rhythm GI Palpation: soft and nontender Skin Lesions: no lesions Rashes: no rashes Neuro Cognition: normal cognition Speech: speech normal Motor: muscle tone normal throughout Extrem General: no clubbing, cyanosis or edema Psych Mental Status: mental status grossly normal Assessment Plan Assessment Plan (1) Hypertension: Status: Chronic Code(s): I10 - Essential (primary) hypertension SNOMED Code(s): 06064946 Category: Medical (2) Obesity: Status: Acute Code(s): E66.9 - Obesity, unspecified SNOMED Code(s): 925486336 Category: Medical (3) Hypothyroidism (acquired): Status: Acute Code(s): E03.9 - Hypothyroidism, unspecified SNOMED Code(s): 605610675 Category: Medical (4) Obstructive sleep apnea (adult) (pediatric): Status: Acute Onset Date: 11/30/17 Code(s): G47.33 - Obstructive sleep apnea (adult) (pediatric) SNOMED Code(s): 94367093 Category: Medical Plan - Yash Rossi, DO: Review of multiple chronic conditions. His blood pressure is doing well and will continue lisinopril. Disappointed that phentermine has decreased his appetite but has not decreased his overall weight. I asked him to keep a calorie log and find out how many calories per day that he iseating. Will try Saxenda in addition to the phentermine to see if this will finally help break the his loss/gain cycles. Thyroid is doing quite well will continue with 175 mcg. I like to have him back in 3 months and we will recheck labs at that time including his testosteronelevel. Orders: Orders: CBC W AUTO DIFF 3 Months I10 FREE T4 (LAB) 3 Months E03.9 TSH 3 Months E03.9 Medications: New: liraglutide (weight loss) (Saxenda) inject subcutaneously once daily: week 1 = 0.6 mg; week 2 = 1.2 mg; week 3 = 1.8 mg; week 4 = 2.4 mg; then 3 mg daily subcut 15 mL 11RF pen needle, diabetic (BD Ultra-Fine Micro Pen Needle) As directed 50 ea 11RF Refilled: phentermine 30 mg PO QDAY 30 caps 2RF MDD 1 Orders Other Medications: New: liraglutide (weight loss) (Saxenda) inject subcutaneously once daily: week 1 = 0.6 mg; week 2 = 1.2 mg; week 3 = 1.8 mg; week 4 = 2.4 mg; then 3 mg daily subcut 15 mL 11RF pen needle, diabetic (BD Ultra-Fine Micro Pen Needle) As directed 50 ea 11RF Refilled: phentermine 30 mg PO QDAY 30 caps 2RF MDD 1 Other Orders: Orders: CMP 3 Months E78.00 LIPID PANEL 3 Months E78.00 Testosterone, Free(Direct)/Tot 3 Months R79.89 HGBA1C + EAG 3 Months E11.9 Instructions: Hypothyroidism (GEN) DASH Eating Plan (GEN) Hypertension (GEN) Electronically Signed By: <Electronically signed by Yash Rossi DO> Date/Time Signed: 05/16/19 1642 Name Value Range Interpretation Code Description Data Bindu rce(s) Supporting Document(s) ID Date Data Source [id number] 05/15/2019 04:16:00 PM EDT [facility] Name Value Range Interpretation Code Description Data Bindu rce(s) Supporting Document(s) Leukocytes [#/volume] in Blood by Automated count 9.9 10*3/uL 4.45-10 .71 N [facility] Erythrocytes [#/volume] in Blood by Automated count 4.95 10*6/uL 4.3- 6.1 N [facility] Hemoglobin [Moles/volume] in Blood 13.8 g/dL 13-18 N [facility] Hematocrit [Volume Fraction] of Blood by Automated count 41.9 % 42-52 Below low normal [facility] Erythrocyte mean corpuscular volume [Ent itic volume] in Cord blood by Automated count 84.6 fL 80-96 [facility] Erythrocyte mean corpuscular hemoglobin [Entitic mass] by Automated count 27.9 pg 27-31 N [facility] Erythrocyte mean corpuscular hemoglobin concentration [Mass/volume] in Cord blood 32.9 g/dL 33-[address] [facility] Erythrocyte distribution width [Entitic volume] by Automated count 15 % 11-15 N [facility] Platelets [#/volume] in Blood by Automated count 279 10*3/uL 130-472 N [facility] Platelet mean volume [Entitic volume] in Blood 8.7 fL 9.1-13. 1 Below low normal [facility] Neutrophils/100 leukocytes in Blood by Automated count 65.0 % 41- 77 N [facility] Neutrophils [#/volume] in Blood by Automated count 6.4 U 1.7-7.6 [facility] Lymphocytes/100 leukocytes in Blood by Automated count 23.6 % 14- 46 N [facility] Lymphocytes [#/volume] in Blood by Automated count 2.3 U 0.6-4.6 [facility] Monocytes/100 leukocytes in Blood by Automated count 6.7 % 4-12 [facility] Monocytes [#/volume] in Blood by Automated count 0.7 U 0.2-1.2 [facility] Eosinophils/100 leukocytes in Blood by Automated count 3.1 % 0-7 [facility] Eosinophils [#/volume] in Blood by Automated count 0.3 U 0.0-0.5 [facility] Basophils/100 leukocytes in Blood by Automated count 0.6 % 0.4-1 .3 [facility] Basophils [#/volume] in Blood by Automated count 0.1 U 0.0-0.2 [facility] NUCLEATED RED BLOOD CELL 0 % [facility] NUCLEATED RED BLOOD CELL# 0 U [facility] Immature granulocytes [Presence] in Blood by Automated count 0-2 [facility] Immature granulocytes [#/volume] in Blood by Automated count 0.1 U 0-0.1 [facility] Manual Differential panel - Blood NO [facility] ID Date Data Source [id number] 05/15/2019 04:47:00 PM EDT [facility] Name Value Range Interpretation Code Description Data Bindu rce(s) Supporting Document(s) Hemoglobin A1c % 6.0 % 4.0-6.0 [facility] The following ranges may be u sed for interpretation of results: HGBA1C degree of glucose control: Greater than 8%: Action Suggested * Less than 7%: Goal of Diabetic Therapy Less than 6%: NormalFactors such as duration of diabetes, adherence to therapyand the age of the patient should also be considered inassessing the degree of blood glucose control.* High risk of developing [facility] complications such asretinopathy, nephropathy, neuropathy, cardiopathy, etc. Some danger of hypoglycemic reaction in Type I diabetics.Some glucose intolerant individuals and "Sub Clinical"diabetics may demonstrate HGBA1C levels in this area. Glucose mean value [Moles/volume] in Blood Estimated f rom glycated hemoglobin 126 mg/dL [facility] An A1C of 7% - the goal of diabetic ther apy - is equivalentto an EAG of 154 mg/dl. ID Date Data Source [id number] 05/15/2019 05:19:00 PM EDT [facility] Name Value Range Interpretation Code Description Data Bindu rce(s) Supporting Document(s) Urea nitrogen [Mass/volume] in Serum or Plasma 14 mg/dL 9-23 [facility] Sodium [Moles/volume] in Serum or Plasma 138 mmol/L 132-146 [facility] Potassium [Moles/volume] in Serum or Plasma 4.0 mmol/L 3.5-5.5 [facility] Chloride [Moles/volume] in Serum or Plasma 107 mmol/L 99-109 [facility] Carbon dioxide, total [Moles/volume] in Serum or Plasma 24 mmol/L 20 -31 [facility] Anion gap in Serum or Plasma 11 mmol/L 8-[address] [facility] Glucose [Mass/volume] in Serum or Plasma 114 mg/dL 74-106 Above high normal [facility] Creatinine 1.2 mg/dL 0.5-1.1 Above high normal [facility] Glomerular filtration rate/1.73 sq M.pre dicted [Volume Rate/Area] in Serum or Plasma Greater Than 60 ABOVE 60 [facility] Alanine aminotransferase [Enzymatic acti vity/volume] in Serum or Plasma by With P-5'-P 70 U/L 10-[address] [facility] Aspartate aminotransferase [Enzymatic ac tivity/volume] in Serum or Plasma by With P-5'-P 27 U/L 0-33 [facility] pital Alkaline phosphatase [Enzymatic activity/volume] in Serum or Plasma 86 U/L 45-129 [facility] Calcium [Mass/volume] in Serum or Plasma 8.7 mg/dL 8.5-10.1 [facility] Bilirubin.total [Mass/volume] in Serum or Plasma 0.3 mg/dL 0.3-1.2 [facility] Albumin [Mass/volume] in Serum or Plasma by Bromocresol purple (BCP) dye binding method 3.9 g/dL 3.2-4.8 [facility] ital Protein [Mass/volume] in Serum or Plasma 7.5 g/dL 5.7-8.2 [facility] ID Date Data Source [id number] 05/15/2019 05:19:00 PM EDT [facility] Name Value Range Interpretation Code Description Data Bindu rce(s) Supporting Document(s) Thyroxine (T4) free [Mass/volume] in Serum or Plasma 1.27 ng/dL 0.89- 1.76 [facility] ID Date Data Source [id number] 05/15/2019 05:19:00 PM EDT [facility] Name Value Range Interpretation Code Description Data Bindu rce(s) Supporting Document(s) Thyrotropin [Units/volume] in Serum or Plasma by Detec tion limit <= 0.005 mIU/L 1.15 u[iU]/mL 0.35-5.50 [facility] ID Date Data Source [id number] 03/06/2019 03:50:00 PM EST [facility] ED Physician Documentation NAME: SHAVONNE CHANEY : 1990 AGE: 28 MR#: [id number] SERVICE DATE: 03/06/[address]: Shavonne Tellez MD PRIMARY CARE DR: Yash Rossi DO ROOM#: HPI (Adult, General) General Chief Complaint: Skin/integument Stated Complaint: FINGER LACERATION Resident LT, travel outisde home, exposure to hot tubs:: No Time Seen by Provider: 03/06/19 15:31 Source: patient Exam Limitations: no limitations History of Present Illness Narrative: the patient accidentally lacerated 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 left index 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, 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; laceration is on the lateral aspect of the left index finger and is very superficial and is not bleeding History of Present Illness Timing/Duration: 1/[address] Injury/Event Occurred (if applicable): work Past Medical History Past Medical History: Nursing Past Medical History Has Been Reviewed Allergies/Home Meds Allergies Allergy/AdvReac Type Severity Reaction Status Date / Time Penicillins Allergy Unknown Hives Verified 11/08/18 11:38 Home Medications Medication Instructions Recorded Confirmed Last Taken Type naproxen sodium [Aleve] 440 mg PO DAILY tab 11/30/17 11/08/18 Unknown History levothyroxine 175 mcg tablet 175 mcg PO DAILY #90 tab 12/23/18 12/23/18 Unknown Rx lisinopril 20 mg tablet 20 mg PO QDAY #90 tab 12/23/18 12/23/18 Unknown Rx phentermine 15 mg capsule 30 mg PO QDAY #30 cap MDD 1 02/24/19 02/24/19 Unknown Rx PMH (from Triage) Patient Medical History PMH Reviewed/Updated as Needed: Yes PMH/PSH from Triage: Medical History (Updated 12/23/18 @ 16:27 by Yash Rossi DO) Attention deficit disorder (Medical) Chronic low back pain (Medical) Hypothyroidism (Medical) Obesity (Medical) Obstructive sleep apnea (Medical) Hx Drug Resistant Infections Hx MRSA: (Methicillin-resistant Staphylococcus aureus): No Hx VRE (Vancomycin-resistant enterococci): No Hx C.Diff: No Hx CRKP: No Hx Other Resistant Infection?: No Isolation: Standard precautions Hx Recent Travel Out of the country within 10 days (where): No Hx Fever: No Hx Fever with a rash?: No Social History Does patient have suicidal/homicidal thoughts or ideation?: No Are you in a relationship with/Does anyone hit you, yell/swear at you, steal from you?: No Substance Use Hx Alcohol Use: No Hx Substance Use: No Hx Substance Use Treatment: No Vaccination History Hx/Date of Influenza Vaccination: No Hx/Date of Pneumococcal Vaccination: No ROS Review of Systems Constitutional: Denies fever, chills and malaise Eyes: Denies vision change ENT: Denies mouth pain, nasal pain, nasal discharge, nasal congestion and hoarseness Respiratory: Denies cough and SOB Cardiovascular: Denies chest pain and palpitations Gastrointestinal: Reports No Symptoms/Complaints Genitourinary-Male: Denies dysuria, frequency and urgency Musculoskeletal: Denies neck pain, arm pain and back pain Skin/Breasts: Denies rash, hives and pruritus Neurologic: Denies weakness, headache and lightheadedness Physical Exam General Limitations: no limitations General appearance: alert and in no apparent distress Head Head exam: Present atraumatic, normocephalic and normal inspection ENT ENT exam: Present normal exam, normal orophraynx and mucous membranes moist Neck Neck exam: Present normal inspection, full ROM and supple Respiratory Respiratory exam: Present normal lung sounds bilaterally Cardiovascular Cardiovascular Exam: Present regular rate and normal rhythm Extremities Exam Extremities exam: Present full ROM and other (1.5 cm U-shaped, tangential, nonbleeding laceration tothe lateral aspect of the left index finger) Back Exam Back exam: Present normal inspection and full ROM; Absent tenderness Neurological Exam Neurological exam: Present oriented X3, normal gait and other (speech normal) MDM (comprehensive) Medical Decision Making Free Text/Narative:: the left index finger laceration was soaked in Betadine for 10 minutes and a Bacitracin dressing was applied Discharge Plan Admission/Discharge Dx Primary DC Diagnosis: finger laceration ED Provider: Shavonne Tellez ED Status: Sign up Time Seen by Provider: 03/06/19 15:31 Triaged At: 03/06/19 15:31 Condition Condition at Discharge: Good Discharge Detail Disposition: Home, Self-Care Med Rec New Prescriptions: Continued levothyroxine 175 mcg tablet 175 mcg PO DAILY Qty: 90 RF: 3 lisinopril 20 mg tablet 20 mg PO QDAY Qty: 90 RF: 3 phentermine 15 mg capsule 30 mg PO QDAY MDD 1 Qty: 30 RF: 3 naproxen sodium [Aleve] 220 MG tablet 440 mg PO DAILY RF: 0 Discharge Education Printouts: Finger Laceration (ED) Discharge Problem: Finger laceration Medications Medication reconciliation performed by provider at discharge: Yes Follow Up Care/Instructions Diet/Activity/Wound Care..: keep the dressing on your finger laceration in place for 48 hours; after dressing removal, keep the laceration clean and dry and cover it as needed *Discharge Patient* Discharge Orders: Discharge Order (Routine); Ordered 03/06/19 Ordered By: Shavonne Tellez Report Signers: <Electronically signed by Shavonne Tellez MD> Shavonne Tellez MD 03/06/19 1559 Shavonne Tellez MD SIGNATURE DA Report Cosigners: D: MITCHELL 03/06/19 1550 T: MITCHELL 03/06/19 1550 CC: DO Vilma Valencia Value Range Interpretation Code Description Data Bindu rce(s) Supporting Document(s) ID Date Data Source [id number] 02/24/2019 04:14:00 PM [facility] Patient Name: SHAVONNE CHANEY Zo : 1990 Sex: M Pt Unit #: [id number] Location:[facility] Provider: Visit Date/Time: 02/24/19 Primary Insurance: [facility] Secondary Insurance: Self Pay Intake Vital Signs 02/24/19 16:16 Current Height 5 ft 9 in Current Weight 380 lb 6 oz BMI 56.1 BP 120/76 Blood Pressure Location Lt brachial Position Sitting Respiration 19 Pulse 84 Pulse Strength Normal Pulse Source Palpation Temp 98 F Temp Source Tympanic Intake Visit Reasons: Hypertension Nurse Note: Pt c/o cold symptoms x 1 week, sore throat is gone but cough is still there. Installation Tech Required: No Accompanied by: Self / Same as Patient Is patient in pain?: No Allergies Penicillins Allergy (Unknown, Verified 11/08/18 11:38) Hives Fall Risk History of falls: No Ambulatory Aid:: None Gait/Transferring:: Normal HIV Testing Offer - ages 13-64 Requirement for HIV testing offer been met?: Declines today. Pretest education received and acknowledged SBIRT Annual Questionnaire Are you currently in recovery for alcohol or substance use?: No How many times in the past year have you had 5 or more drinks in a day?: None PFSH Social History Does the Patient have a Healthcare Proxy: No Does Patient have a DNR?: No Does Patient have a Living Will?: No Hx Recent Travel (where): No HPI Hypertension (Cardio) Shavonne is a 28-year-old male presenting today to follow-up on Hypertension, obesity and hypothyroidism. His blood pressures under much better control. He states compliance with the lisinopril. He did have a consultation by endocrinology Dr. Palma in [place]. He states it was not very helpful for helping to treat his thyroid issues. She did increase his phentermine to 30 mg a day. He is not sure if he has a follow-up there or not. He does not know what the phentermine is helping him with his obesity. He has not lost any weight. He does think it might have helped suppress his appetite. He admits to binge eating and stress eating. He also states that some days he feels quite good and other days he feels quite poor. Type of visit: follow-up Onset: >1 year Current neurological symptoms: Denies diplopia, headache(s), numbness, loss of vision, weakness or other Current cardiovascular symptom: denies chest pain, dyspnea, dyspnea on exertion, palpitations, fatigue, dizziness or other Current renal disease symptoms: denies fatigue Most Recent Cardiac Tests: No Data to Display Review of Systems Const All systems reviewed are unremarkable except as noted in HPI and below Denies fatigue, Denies headache(s) and Denies weakness Eyes Denies diplopia and Denies loss of vision ENT Denies dizziness and Denies headache(s) Card Denies chest pain, Denies palpitations, Denies dyspnea and Denies dyspnea on exertion Resp Reports cough, Denies dyspnea and Denies dyspnea on exertion Musc Denies numbness Neuro Denies dizziness, Denies headache(s), Denies loss of vision, Denies numbness and Denies weakness Endo Denies fatigue and Denies palpitations Exam Const General: comfortable and no acute distress Nutritional Appearance: obese HENMT Head: normocephalic Eyes General: appearance normal, both eyes and all related structures Neck Neck: normal visual inspection, supple and no JVD present Resp Effort Inspection: normal respiratory effort and able to speak in complete sentences Auscultation: clear to auscultation bilaterally Cardio Rate: regular rate Rhythm: regular rhythm GI Palpation: soft and non tender Skin Lesions: no lesions Rashes: no rashes Neuro Cognition: normal cognition Speech: speech normal Motor: muscle tone normal throughout Extrem General: no clubbing, cyanosis or edema Psych Mental Status: mental status grossly normal Assessment Plan Assessment Plan (1) Hypertension: Status: Chronic Code(s): I10 - Essential (primary) hypertension SNOMED Code(s): 49284780 Category: Medical (2) Obesity: Status: Acute Code(s): E66.9 - Obesity, unspecified SNOMED Code(s): 581498755 Category: Medical (3) Hypothyroidism (acquired): Status: Acute Code(s): E03.9 - Hypothyroidism, unspecified SNOMED Code(s): 624477704 Category: Medical Plan - Yash Rossi, DO: Shavonne is a 28-year-old male presenting with complaints of hypothyroidism hypertension and obesity. His blood pressure is well controlled today we will continue with the lisinopril. He did have the endocrinology r eferral and they increase his phentermine up to 30 mg. His thyroid levels were left unchecked. He needs to have blood work done in a month or 2 and return to further evaluate his thyroid medication. As for obesity we discussed healthy eating calorie reduction and exercise to help with weight loss. Also discussed a trial of bupropion which he declined at this time. Also discussed possibly trying Saxenda or Victoza. He does have an elevated A1c is 6.2% which we will recheck again as well with next labs. He will call us in the meantime with any questions or concerns. Medications: Changed: From: phentermine 15 mg PO QDAY 30 caps 3RF MDD 1 To: phentermine 30 mg (2 x 15 mg) PO QDAY 30 caps 3RF MDD 1 Orders Other Medications: Changed: From: phentermine 15 mg PO QDAY 30 caps 3RF MDD 1 To: phentermine 30 mg (2 x 15 mg) PO QDAY 30 caps 3RF MDD 1 Instructions: DASH Eating Plan (GEN) Hypertension (GEN) Hypothyroidism (GEN) Electronically Signed By: <Electronically signed by Yash Rossi DO> Date/Time Signed: 02/24/19 3553 Name Value Range Interpretation Code Description Data Bindu rce(s) Supporting Document(s) Procedure Social History Code Duration Value Status Description Data Source(s ) 08/24/2019 08:35:37 AM EDT Never smoker completed Never s [facility] 08/24/2019 08:35:37 AM EDT Never smoker completed Never [facility] Smoking 08/24/2019 08:35:00 AM EDT Never smoker completed Never [facility] Smoking 08/24/2019 08:35:00 AM EDT Never smoker completed Never [facility] 05/16/2019 04:00:00 PM EDT No completed [facility] 05/16/2019 04:00:00 PM EDT No completed [facility] 05/16/2019 04:00:00 PM EDT No completed [facility] 05/16/2019 04:00:00 PM EDT No completed [facility] 05/16/2019 04:00:00 PM EDT No completed [facility] 05/16/2019 04:00:00 PM EDT No completed [facility] 03/06/2019 03:56:50 PM EST No completed [facility] 03/06/2019 03:56:50 PM EST No completed [facility] Vital Signs ID Date Data Source [id number] 03/27/2020 10:40:18 AM [facility] Name Value Range Interpretation Code Description Data Source(s) TRANSFER FROM [facility]
[2020-03-28 14:22] VITALS: BP 176/102
[2020-03-28] MEDS: SERTRALINE HCL 50 MG TAB PO SCH (15:34)
[2020-03-28 18:03] VITALS: BP 146/90
[2020-03-28] MEDS ORDERED: metFORMIN XR 500MG TAB *GLUCOPHAGE XR PO SCH (21:00)
[2020-03-28] MEDS: traZODone 50 MG TAB PO PRN (21:14)
[2020-03-28] MEDS: metFORMIN XR 500MG TAB *GLUCOPHAGE XR PO SCH (21:14)
[2020-03-29] MEDS: LEVOTHYROXINE 100MCG TABLET (0.1MG) PO SCH (05:32)
[2020-03-29] MEDS: LEVOTHYROXINE 75MCG TABLET (0.075MG) PO SCH (05:32)
[2020-03-29 06:00] VITALS: BP 132/84
[2020-03-29] MEDS ORDERED: LEVOTHYROXINE 75MCG TABLET (0.075MG) PO SCH (06:00)
[2020-03-29] MEDS ORDERED: LEVOTHYROXINE 100MCG TABLET (0.1MG) PO SCH (06:00)
[2020-03-29] MEDS: buPROPion **XL** TABLET 150MG (WELLBUTRIN XL) PO SCH (07:59)
[2020-03-29] MEDS: SERTRALINE HCL 50 MG TAB PO SCH (07:59)
[2020-03-29] MEDS: NAPROXEN 250 MG TAB PO SCH (07:59)
[2020-03-29] MEDS ORDERED: hydrOXYzine 50 MG TAB PO PRN (14:15)
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
--- NOTE | 2020-03-29 15:47 | HPEPDOC ---
[facility] Medical History & Physical Date of Admission Mar 29, 2020 Date of Service: Mar 29, 2020 History and Physical CHIEF COMPLAINT: Subtle ideation HISTORY OF PRESENT ILLNESS: 29 yo M with history of hypertension, hypothyroidism and prediabetes, tested positive for COVID-19 on 03/28/20, admitted to [facility] oral health unit for suicidal ideation. Hospitalist was consulted for medical intake. PAST MEDICAL HISTORY: HTN pre-DM hypothyroidism PAST SURGICAL HISTORY: Remote hx of adenoidectomy SOCIAL HISTORY: Patient denies smoking Occasional alcohol use Patient denies illicit drug use FAMILY HISTORY: Father: HTN, DM2 ALLERGIES: Please see below. REVIEW OF SYSTEMS: CONSTITUTIONAL: patient denies fevers, chills HEENT: patient denies blurred vision, loss of vision, headache,. CARDIOVASCULAR: patient denies chest pain, palpitations. RESPIRATORY: patient denies shortness of breath, cough, hemoptysis. GASTROINTESTINAL: patient denies abdominal pain, n/v/d, blood in stool. GENITOURINARY: patient denies dysuria, discharge. SKIN: patient denies rashes. MUSCULOSKELETAL: patient denies joint pain, neck pain. NEUROLOGICAL: patient denies focal weakness, numbness, seizures. PSYCHIATRIC: patient denies SI/HI at this time ENDOCRINE: patient denies polyuria, heat intolerance, cold intolerance. HEMATOLOGIC/LYMPHATIC: patient denies easy bruising. HOME MEDICATIONS: Please see below. PHYSICAL EXAMINATION: VITAL SIGNS: please see below General: obese, NAD, comfortable HEENT: PERRLA, EOMI, sclerae clear Neck: supple, normal ROM, no JVD Respiratory: lungs CTAB, no wheeze, no rales, no crackles CVS: RRR, normal S1, S2, no murmurs Abdo: soft, no masses, no hepatosplenomegaly, BS+, no rebound tenderness Extremities: no edema, pulses 2+ MSK: no joint deformities, normal ROM Neuro: no focal neuro deficits, moving all 4 extremities, CN2-12 intact. Strength 5/5 in all 4 extremities. No nystagmus. Psych: calm, cooperative, AAO x 3 LABORATORY DATA: See below. MICROBIOLOGY: Please see below. ASSESSMENT: 29 yo M with history of hypertension, hypothyroidism and prediabetes, tested positive for COVID-19 on 03/28/20, admitted to behavioral health unit for suicidal ideation. Hospitalist was consulted for medical intake. PLAN: #Suicidal ideation: per psychiatry. #COVID-19: saturating 98% on RA. No indication for dexamethasone, or remdesivir. Monitor vitals. #HTN: resume home meds #pre-DM: consistent carbohydrate diet #hypothyrod: resume levothyroxine. TSH midly elevated, to f/u with PCP. #Obesity: BMI 58.3, complicating care #DVT ppx: lovenox 40 mg SC daily Thank you for the consult. Vital Signs Vital Signs Date Time Temp Pulse Resp B/P (MAP) Pulse Ox O2 Delivery O2 Flow Rate FiO2 03/29/20 07:58 132/84 03/29/20 06:00 97.6 88 18 98 Room Air Home Medications Scheduled Bupropion HCl (Bupropion Xl) 300 Mg Tab.er.24h, 300 MG PO DAILY for depression Levothyroxine Sodium (Synthroid) 175 Mcg Tablet, 175 MCG PO DAILY Lisinopril (Lisinopril) 20 Mg Tablet, 20 MG PO DAILY Melatonin (Melatonin) 10 Mg Tablet, 20 MG PO QHS Metformin HCl (Metformin HCl ER) 500 Mg Tab.er.24h, 500 MG PO QPM AFTER DINNER Naproxen Sodium (Aleve) 220 Mg Tablet, 440 MG PO DAILY Riboflavin (Vitamin B2) (Riboflavin) 400 Mg Tablet, 400 MG PO DAILY Scheduled PRN Hydroxyzine HCl (Hydroxyzine HCl) 50 Mg Tablet, 50 MG PO BIDP PRN for ANXIETY Allergies Coded Allergies: Penicillins (Verified Allergy, Unknown, 03/26/20) A-FIB/CHADSVASC A-FIB History Current/History of A-Fib/PAF?: No Current PO Anticoag Therapy: No BRIANNE ALVAREZ MD Mar 29, 2020 15:47
[2020-03-29] MEDS: metFORMIN XR 500MG TAB *GLUCOPHAGE XR PO SCH (21:31)
[2020-03-29] MEDS: traZODone 50 MG TAB PO PRN (21:31)
[2020-03-30] MEDS: LEVOTHYROXINE 75MCG TABLET (0.075MG) PO SCH (05:45)
[2020-03-30] MEDS: LEVOTHYROXINE 100MCG TABLET (0.1MG) PO SCH (05:45)
[2020-03-30] MEDS: buPROPion **XL** TABLET 150MG (WELLBUTRIN XL) PO SCH (09:54)
[2020-03-30] MEDS: NAPROXEN 250 MG TAB PO SCH (09:55)
[2020-03-30] MEDS: metFORMIN XR 500MG TAB *GLUCOPHAGE XR PO SCH (21:44)
--- NOTE | 2020-03-30 21:56 | MHIPNPDOC ---
[facility] Progress Note Progress Note Subjective: Deyvi is a 29 year old male with no past inpatient Psychiatric hospitalizations who was brought to the [facility] ED and admitted to the [facility] after being served restraining papers by the Police (from his ), where he then endorsed suicidal ideation to the police. States that he is still feeling somewhat despondent, but overall, better than before. People make mistakes; I know I just need to move on with my life and Im going to do my best to forgot about what happened and what I did. States that hes tolerating the Wellbutrin and Abilify well. Denies any side effects from med regimen. States that he had a good night sleep last night. Denies any current passive or active suicidal or homicidal ideation, intent or plan. I guess its going to be a new beginning for me; I cant obviously go back to my so temporarily, Im going to have to stay with my father. Denies any manic or psychotic sxs. Denies any other complaints. Objective: He was seen and evaluated, alert and oriented times three, cognition good, poor hygiene, disheveled/unkempt, overweight, appears older than stated age, good eye contact, somewhat psychomotor retarded; Speech is normal in production, rate and volume. Mood: ok, I guess, affect: euthymic; TP are goal directed and linear; TC contains depressive themes but he denies any current passive or active suicidal or homicidal ideation, intent or plan. Denies AH/VH/TH; insig ht, impulse control and judgment are poor Diagnosis: Unspecified depressive disorder A/P: Deyvi is a 29 year old male with no past inpatient Psychiatric hospitalizations who was brought to the [facility] ED and admitted to the [facility] after being served restraining papers by the Police (from his ), where he then endorsed suicidal ideation to the police. 1) Continued Wellbutrin XL at 300 mg q AM and Abilify at 10 mg qhs 2) Continue to collaborate with treatment team and Hospitalist. 3) Q 15 min checks 4) Collaborate with discharge planners for the safest, most optimal, discharge, upon his clinical stabilization. 5) Continue to encourage participation with group programming and activities on the unit. Total time spent: 30 minutes Vital Signs Vital Signs Date Time Temp Pulse Resp B/P (MAP) Pulse Ox O2 Delivery O2 Flow Rate FiO2 03/30/20 09:54 132/84 03/29/20 06:00 97.6 88 18 98 Room Air Current Medications Current Medications Medications (Trade) Dose Ordered Sig/Myriam Route PRN Reason Start Time Stop Time Status Last Admin Dose Admin Acetaminophen (Tylenol Tab) 650 mg Q6HP PRN PO HEADACHE or DISCOMFORT 03/28/20 12:30 Al Hydrox/Mg Hydrox/Simethicone (Mylanta) 30 ml Q4HP PRN PO HEARTBURN/INDIGESTION 03/28/20 12:30 Bupropion HCl (Wellbutrin Xl) 150 mg DAILY PO 03/27/20 09:00 03/29/20 14:12 DC 03/29/20 07:59 Bupropion HCl (Wellbutrin Xl) 150 mg DAILY PO 03/28/20 09:00 03/28/20 07:28 DC Bupropion HCl (Wellbutrin Xl) 150 mg DAILY PO 03/30/20 09:00 03/30/20 09:54 Home Med (Med Rec Complete!) ASDIRECTED XX 03/26/20 23:00 03/26/20 22:58 DC Hydroxyzine HCl (Atarax) 50 mg Q6HP PRN PO ANXIETY 03/29/20 14:15 Levothyroxine Sodium (Synthroid) 75 mcg DAILY@06 PO 03/27/20 06:00 03/30/20 05:45 Levothyroxine Sodium (Synthroid) 75 mcg DAILY@06 PO 03/29/20 06:00 03/28/20 07:29 DC Levothyroxine Sodium (Synthroid) 100 mcg DAILY@06 PO 03/27/20 06:00 03/30/20 05:45 Levothyroxine Sodium (Synthroid) 100 mcg DAILY@06 PO 03/29/20 06:00 03/28/20 07:28 DC Lisinopril (Prinivil) 20 mg DAILY PO 03/27/20 09:00 03/30/20 09:54 Lisinopril (Prinivil) 20 mg DAILY PO 03/28/20 09:00 03/28/20 07:29 DC Magnesium Hydroxide (Milk Of Magnesia) 30 ml DAILYPRN PRN PO CONSTIPATION 03/28/20 12:30 Metformin HCl (Glucophage Xr) 500 mg QHS PO 03/27/20 21:00 03/30/20 21:44 Metformin HCl (Glucophage Xr) 500 mg QPM PO 03/28/20 21:00 03/28/20 07:29 DC Naproxen (Naprosyn) 500 mg DAILY PO 03/27/20 09:00 03/30/20 09:55 Olanzapine (ZyPREXA ZYDIS) 5 mg Q6HP PRN PO AGITATION 03/28/20 12:30 03/29/20 02:51 Sertraline HCl (Zoloft) 50 mg DAILY PO 03/28/20 09:00 03/29/20 14:18 DC 03/29/20 07:59 Trazodone HCl (Desyrel) 50 mg QHSP PRN PO INSOMNIA 03/28/20 12:30 03/29/20 21:31 Allergies Coded Allergies: Penicillins (Verified Allergy, Unknown, 03/26/20) REBECCA MENDOZA MD Mar 30, 2020 21:56
[2020-03-30] MEDS: traZODone 50 MG TAB PO PRN (22:03)
[2020-03-31] MEDS: LEVOTHYROXINE 75MCG TABLET (0.075MG) PO SCH (05:45)
[2020-03-31] MEDS: LEVOTHYROXINE 100MCG TABLET (0.1MG) PO SCH (05:45)
[2020-03-31] MEDS: buPROPion **XL** TABLET 150MG (WELLBUTRIN XL) PO SCH (08:55)
[2020-03-31] MEDS: NAPROXEN 250 MG TAB PO SCH (08:56)
[2020-03-31 09:21] VITALS: BP 130/72
--- NOTE | 2020-03-31 15:11 | MHIPNPDOC ---
[facility] Progress Note Progress Note Subjective: Deyvi is a 29 year old male with no past inpatient Psychiatric hospitalizations who was brought to the [facility] ED and admitted to the [facility] after being served restraining papers by the Police (from his ), where he then endorsed suicidal ideation to the police. Sleep was more restful overnight. This hospitalization gave me time to ponder and think; I think it was for the best. Denies any manic or psychotic sxs. States that he does feel a bit helpless and hopeless given his current situation but he is optimistic that things will improve. He is isolative to his room due to having COVID but he said he has been talking on the phone with many of his family members throughout his stay here and they have been helpful. Objective: He was seen and evaluated, alert and oriented times three, cognition good, poor hygiene, disheveled/unkempt, overweight, appears older than stated age, good eye contact, somewhat psychomotor retarded; Speech is normal in production, rate and volume. Mood: a bit better, affect: constricted; TP are goal directed and linear; TC contains depressive themes but he denies any current passive or active suicidal or homicidal ideation, intent or plan. Denies AH/VH/TH; insight, impulse control and judgment are poor/fair Diagnosis: Unspecified depressive disorder A/P: Deyvi is a 29 year old male with no past inpatient Psychiatric hospitalizations who was brought to the [facility] ED and admitted to the [facility] after being served restraining papers by the Police (from his ), where he th en endorsed suicidal ideation to the police. 1) Continued Wellbutrin XL at 300 mg q AM for alleviation of depressive sxs 2) Continue to collaborate with treatment team and Hospitalist. 3) Q 15 min checks 4) Collaborate with discharge planners for the safest, most optimal, discharge, upon his clinical stabilization. Likely discharge on 04/01/20 5) Continue to encourage participation with group programming and activities on the unit. Total time spent: 30 minutes Vital Signs Vital Signs Date Time Temp Pulse Resp B/P (MAP) Pulse Ox O2 Delivery O2 Flow Rate FiO2 03/31/20 09:21 97.9 82 17 130/72 (91) 98 Room Air Current Medications Current Medications Medications (Trade) Dose Ordered Sig/Myriam Route PRN Reason Start Time Stop Time Status Last Admin Dose Admin Acetaminophen (Tylenol Tab) 650 mg Q6HP PRN PO HEADACHE or DISCOMFORT 03/28/20 12:30 03/30/20 22:04 Al Hydrox/Mg Hydrox/Simethicone (Mylanta) 30 ml Q4HP PRN PO HEARTBURN/INDIGESTION 03/28/20 12:30 Bupropion HCl (Wellbutrin Xl) 150 mg DAILY PO 03/27/20 09:00 03/29/20 14:12 DC 03/29/20 07:59 Bupropion HCl (Wellbutrin Xl) 150 mg DAILY PO 03/28/20 09:00 03/28/20 07:28 DC Bupropion HCl (Wellbutrin Xl) 150 mg DAILY PO 03/30/20 09:00 03/31/20 12:44 DC 03/31/20 08:55 Bupropion HCl (Wellbutrin Xl) 300 mg DAILY PO 04/01/20 09:00 Home Med (Med Rec Complete!) ASDIRECTED XX 03/26/20 23:00 03/26/20 22:58 DC Hydroxyzine HCl (Atarax) 50 mg Q6HP PRN PO ANXIETY 03/29/20 14:15 03/31/20 08:55 Levothyroxine Sodium (Synthroid) 75 mcg DAILY@06 PO 03/27/20 06:00 03/31/20 05:45 Levothyroxine Sodium (Synthroid) 75 mcg DAILY@06 PO 03/29/20 06:00 03/28/20 07:29 DC Levothyroxine Sodium (Synthroid) 100 mcg DAILY@06 PO 03/27/20 06:00 03/31/20 05:45 Levothyroxine Sodium (Synthroid) 100 mcg DAILY@06 PO 03/29/20 06:00 03/28/20 07:28 DC Lisinopril (Prinivil) 20 mg DAILY PO 03/27/20 09:00 03/31/20 09:21 Lisinopril (Prinivil) 20 mg DAILY PO 03/28/20 09:00 03/28/20 07:29 DC Magnesium Hydroxide (Milk Of Magnesia) 30 ml DAILYPRN PRN PO CONSTIPATION 03/28/20 12:30 Metformin HCl (Glucophage Xr) 500 mg QHS PO 03/27/20 21:00 03/30/20 21:44 Metformin HCl (Glucophage Xr) 500 mg QPM PO 03/28/20 21:00 03/28/20 07:29 DC Naproxen (Naprosyn) 500 mg DAILY PO 03/27/20 09:00 03/31/20 08:56 Olanzapine (ZyPREXA ZYDIS) 5 mg Q6HP PRN PO AGITATION 03/28/20 12:30 03/29/20 02:51 Sertraline HCl (Zoloft) 50 mg DAILY PO 03/28/20 09:00 03/29/20 14:18 DC 03/29/20 07:59 Trazodone HCl (Desyrel) 50 mg QHSP PRN PO INSOMNIA 03/28/20 12:30 03/30/20 22:03 Allergies Coded Allergies: Penicillins (Verified Allergy, Unknown, 03/26/20) REBECCA MENDOZA MD Mar 31, 2020 15:11
[2020-03-31 18:11] VITALS: BP 132/78
[2020-03-31] MEDS: metFORMIN XR 500MG TAB *GLUCOPHAGE XR PO SCH (21:52)
[2020-03-31] MEDS: traZODone 50 MG TAB PO PRN (21:52)
[2020-03-31 22:15] VITALS: BP 181/103
[2020-03-31 22:30] VITALS: BP 108/62
[2020-04-01] MEDS: LEVOTHYROXINE 100MCG TABLET (0.1MG) PO SCH (06:11)
[2020-04-01] MEDS: LEVOTHYROXINE 75MCG TABLET (0.075MG) PO SCH (06:11)
[2020-04-01] MEDS: NAPROXEN 250 MG TAB PO SCH (08:15)
[2020-04-01] MEDS ORDERED: buPROPion **XL** TABLET 150MG (WELLBUTRIN XL) PO SCH (09:00)
[2020-04-01] MEDS ORDERED: BUPR150T4 PO (10:45)
--- NOTE | 2020-04-01 12:58 | MHDSPDOC ---
[facility] Discharge Summary Discharge Summary DATE OF ADMISSION: Mar 28, 2020 at 12:19 DATE OF DISCHARGE: Apr 01, 2020 at 12:47 DISCHARGE DIAGNOSES: 1. unspecified depressive disorder REASON FOR ADMISSION: Patient is a 29 -year-old , male, who has no previous inpatient psychiatric admissions. He presents to the emergency room after he reported he was served by police officers with an order of protection towards his and 15 year old son. He reports he has had depression for about a year after experiencing multiple psychosocial stressors. 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 He reports that when he was served the OOP, he told the police, "I would rather if I can't be with my family." He is unsure if there are any pending legal charges yet. At this time, he denies suicidal thoughts. CONSULTANTS INVOLVED: see hospitalist H&P TREATMENT AND PROGRESS ON THE UNIT : Due to patient on isolation precautions, as he is Covid +, he was afforded medication therapy and management and individual therapy treatment modalities. HOSPITAL COURSE: Deyvi is a 29 year old male who presented with police to [facility]'s emergency room after he expressed suicidal thoughts to them. He was tested for Covid and results indicated he was positive - he is asymptomatic. He was transferred to [facility]'s Inpatient mental health treatment for further stabilization and was placed on isolation precautions. Since admission, he denies any suicidal/homicidal thoughts and does not express any psychotic symptoms, his wellbutrin XL was increased from 150 mg daily to 300 mg daily. DISCHARGE ASSESSMENT: In today's interview, Deyvi reports he would like to be discharged. He denies suicidal thoughts, reports the last time he had suicidal thoughts was on Wednesday night before admission. He reports he cannot go to his home due to the stay away order from his and that he will go to stay with his dad. He also denies hi/depression and anxiety, He will be established with outpatient psychiatry. MSE is normal. Therefore, he does not meet involuntary criteria, and per his request, he will discharge today. MENTAL STATUS EXAMINATION ON DISCHARGE: Deyvi is a 29 year old, , domiciled, white male who was approached in his room, as he is covid positive. He A&O x3, receptive, calm, cooperative, and easy to engage in interview. General Appearance: well groomed, appears stated age Build: overweight Demeanor: average Eye Contact: average Activity: average Behavior: cooperative Speech: clear, normal volume, reg/rate,rhythm,volume Mood: euthymic Mood "bored" Affect: congruent with mood Thought Process: logical/linear Thought Content (Delusions): none reported, denies SI, HI, AVH Thought Content (Other): none reported, appropriate, coherent Thought Content (Aggressive): none reported Perception (Hallucinations): auditory (reports +ah, last time was 03/23/20) Perception (Other): none reported Cognition (Impairment of): none reported Cognition(Intelligence Est.): average Oriented: Awake, Alert, Oriented times three Insight: good Judgment: good MEDICATIONS ON DISCHARGE: - Wellbutrin XL increased to 300 mg po daily - Continue all home medications after discharge PLAN/FOLLOWUP ARRANGEMENTS: see assistant media planner notes The amount of time spent in the coordination of care for this patient was approximately 30 minutes. Vital Signs/I&Os Vital Signs Date Time Temp Pulse Resp B/P (MAP) Pulse Ox O2 Delivery O2 Flow Rate FiO2 03/31/20 22:30 108/62 (77) 03/31/20 22:15 96.3 95 18 03/31/20 18:11 99 Room Air Medications Scheduled Bupropion Hcl (Bupropion Xl) 150 Mg Tab.er.24h, 300 MG PO DAILY for depression, #14 Levothyroxine Sodium (Synthroid) 175 Mcg Tablet, 175 MCG PO DAILY, (Reported) Lisinopril (Lisinopril) 20 Mg Tablet, 20 MG PO DAILY, (Reported) Melatonin (Melatonin) 10 Mg Tablet, 20 MG PO QHS, (Reported) Metformin HCl (Metformin HCl ER) 500 Mg Tab.er.24h, 500 MG PO QPM, (Reported) AFTER DINNER Naproxen Sodium (Aleve) 220 Mg Tablet, 440 MG PO DAILY, (Reported) Riboflavin (Vitamin B2) (Riboflavin) 400 Mg Tablet, 400 MG PO DAILY, (Reported) Allergies Coded Allergies: Penicillins (Verified Allergy, Unknown, 03/26/20) HELLEN SALGADO NP Apr 01, 2020 12:58
[2020-04-03] MEDS ORDERED: BUPR-335 PO (10:07)
[2020-04-03] MEDS ORDERED: HYDR50TA70 PO (10:08)
== END 2020-04-01 13:10 | disposition home or self-care (01) | DRG 754 ==
LOC: M ED 19:14 → M ED INP 03-28 12:19 → M PSY 03-28 13:20
PROVIDERS: ADMIT Psychiatry & Neurology Psychiatry; ATTEND Psychiatry & Neurology Psychiatry
DX: F32.9 Major depressive disorder, single episode, unspecified (principal); Z68.43 Body mass index [BMI] 50.0-59.9, adult; R45.851 Suicidal ideations; Z79.899 Other long term (current) drug therapy; Z88.0 Allergy status to penicillin; I10 Essential (primary) hypertension; E03.9 Hypothyroidism, unspecified; E66.9 Obesity, unspecified